=== PATIENT | male | born 1995 | race Caucasian/White ===

== ENCOUNTER 2016-11-22 12:51 | Emergency (ER) | payer BC, OTHER ==
[~2016-11-22] VITALS: Ht 182.9 cm; Wt 76.2 kg
[2016-11-22 12:55] VITALS: BP 143/87; PULSE 98; TEMP 36.8; O2SAT 96; Ht 182.9 cm; Wt 76.2 kg
[2016-11-22] MEDS ORDERED: XYLOCAINE 1%/SOD BICARB 20 ML VIAL INFIL ONE (13:15)
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
== END 2016-11-22 13:39 | disposition home or self-care (01) ==
LOC: C.EDB 12:53 → C.EDD 13:39
DX: S01.81XA Laceration without foreign body of other part of head, initial encounter (principal); W50.0XXA Accidental hit or strike by another person, initial encounter